=== PATIENT | female | born 1950 | race Caucasian/White ===

== ENCOUNTER 2019-02-17 16:54 | Emergency (ER) | payer OTHER ==
[~2019-02-17] VITALS: Ht 167.6 cm; Wt 64.0 kg
[2019-02-17 17:03] VITALS: Ht 167.6 cm; Wt 64.0 kg
[2019-02-17 18:30] VITALS: BP 142/79; PULSE 99; RESP 16
== END 2019-02-17 18:30 | disposition home or self-care (01) ==
LOC: E/R 16:54
DX: I10 Essential (primary) hypertension (principal); R40.2142 Coma scale, eyes open, spontaneous, at arrival to emergency department; R40.2362 Coma scale, best motor response, obeys commands, at arrival to emergency department; R40.2252 Coma scale, best verbal response, oriented, at arrival to emergency department; Z86.73 Personal history of transient ischemic attack (TIA), and cerebral infarction without residual deficits
CPT/HCPCS: 82962; 93005